=== PATIENT | male | born 1995 | race Caucasian/White ===

== ENCOUNTER 2024-08-13 13:25 | Outpatient (CLI) | payer OTHER, SELFPAY ==
--- NOTE | ~2024-08-13 | MR_ITS ---
MRI of the left ankle Clinical history: Pain Technique: Coronal proton-density and proton-density fat-sat images, axial proton-density and proton- density fat-sat images, and sagittal proton-density and proton-density fat-sat images were acquired. Findings: Syndesmotic ligaments are intact. Anterior and posterior talofibular ligaments, and calcane ofibular ligament are intact. Deltoid ligament intact. Medial flexor tendons, peroneal tendons, and anterior extensor tendons are intact. There is high-grad e, probable complete rupture of the Achilles tendon, with the tear centered 8 cm proximal to the dist al Achilles insertion of the calcaneus. There is surrounding fluid. There is extensive subcutaneous s oft tissue edema about the ankle. No osteochondral lesion of the talar dome. Bone marrow signals and joint spaces are intact. No joint effusion. Plantar fascia intact. Impression: High-grade, probable complete tear of the Achilles tendon as detailed above. Extensive subcutaneous soft tissue edema about the ankle. Reviewed, dictated and finalized at location . Impression: High-grade, probable complete tear of the Achilles tendon as detailed above. Extensive subcutaneous soft tissue edema about the ankle.
== END 2024-08-13 13:26 | disposition home or self-care (01) ==
PROVIDERS: PCP Orthopaedic Surgery; Visit Provider Orthopaedic Surgery
DX: M25.472 Effusion, left ankle (principal); M25.572 Pain in left ankle and joints of left foot; G89.29 Other chronic pain
CPT/HCPCS: 73721

== ENCOUNTER 2025-03-13 08:57 | Outpatient (CLI) | payer OTHER, SELFPAY ==
--- NOTE | ~2025-03-13 | US_ITS ---
US breast RT complete INDICATION: Evaluate palpable chest lump TECHNIQUE: Dedicated complete left breast ultrasound including all 4 quadrants in the subareolar location COMPARISON: No prior studies for comparison. FINDINGS: The right breast is/are composed of normal heterogeneous echotexture without focal solid or cystic mass. IMPRESSION: 1: Normal right breast ultrasound. BI-RADS CATEGORY 1 - NEGATIVE Reviewed, dictated and finalized at location B. TUTOR
== END 2025-03-13 08:58 | disposition home or self-care (01) ==
LOC: CHSIMG 08:57
PROVIDERS: PCP Orthopaedic Surgery; Visit Provider Plastic Surgery
DX: R22.2 Localized swelling, mass and lump, trunk (principal)
CPT/HCPCS: 76641